=== PATIENT | male | born 1985 | race Caucasian/White ===

== ENCOUNTER 2025-01-05 18:00 | Emergency (ER) | payer OTHER ==
[2025-01-05] MEDS ORDERED: Ketorolac 30 MG/ML SDV IM PRN (18:11)
[2025-01-05] MEDS ORDERED: Acetaminophen 500 MG Tab PO PRN (18:11)
[2025-01-05] MEDS: Diphtheria,Pertussis(Acell),Tetanus Vaccine 0.5 ML Syringe IM ONE (18:40)
[2025-01-05] MEDS: Bacitracin Oint 1 GM U/D Packet TOP ONE (18:40)
[2025-01-05] MEDS: Lidocaine 1% 10 ML MDV INFILT ONE (18:41)
== END 2025-01-05 20:38 | disposition home or self-care (01) ==
LOC: MW.ED 18:00
DX: S67.21XA Crushing injury of right hand, initial encounter (principal); S61.210A Laceration without foreign body of right index finger without damage to nail, initial encounter; Z23 Encounter for immunization
CPT/HCPCS: 12002; 73130; 90471; 90715; 99283; J2003; 12041